=== PATIENT | male | born 1985 ===

== ENCOUNTER 2017-05-17 12:31 | Emergency (ER) | payer MEDICAID ==
[2017-05-17 12:45] VITALS: BP 113/66; PULSE 96; RESP 16; O2SAT 97
--- NOTE | 2017-05-17 12:55 | ED.REPORT ---
HPI-Overdose/Alcohol Toxicity Date of Service May 17, 2017 ED Provider: Jose Juan Jackson DO The pt is a 32 y/o male presenting to the ED complaining of rectal bleeding. He reports seeing a little blood after bowel movements. Denies vomiting. The pt also has scrapes on his forehead from a recent fall. Nursing Notes Stated Complaint: BLOOD IN STOOL Chief Complaint: Blood in stool Nursing Notes Reviewed: Yes Allergies: Coded Allergies: No Known Allergies (Unverified , 05/17/17) General Time Seen by Provider: 13:05 Chief Complaint Other (Blood in stool ) Hx Obtained From: Patient Recent Healthcare: No recent doctor visit, No recent hospitalization Similar Sx Previous: No Past Medical History Past Medical History None reported Past Surgical History Craniotomy Smoking History Unknown if Ever Smoker Social History Alcohol Use: 1-3 per day Other Social History: Homeless Review of Systems Scrapes on forehead from recent fall; GI: Reports: Bloody/tarry stool, Denies: Vomiting Complete sys rev & neg: except as marked. Physical Exam Initial Vital Signs Vital Signs (First) Date Time Temp Pulse Resp B/P Pulse Ox O2 Delivery O2 Flow Rate FiO2 05/17/17 12:45 36.2 96 16 113/66 97 Initial VS: Reviewed ENT: Mucous membranes moist, Conjunctiva normal, No scleral icterus Neck: Supple, Non-tender, Full range of motion General/Constitutional: Awake, Alert Appears intoxicated Respiratory / Chest: Atraumatic, Breath sounds NL, Breath sounds = bilat Cardiovascular: Heart rate NL, Regular rhythm, Heart sounds NL Abdomen: Atraumatic, Soft, Non-tender Neurologic: No motor deficits Psychiatric: Affect NL, Mood NL Skin: Color NL, Warm, Dry Facial abrasions Rectum / Perineum: Patient refused exam Interpretation & Diagnostics Lab Results Interpretation Result Diagram: 05/17/17 1318 05/17/17 1318 Test 05/17/17 13:18 White Blood Count 7.1th/mm3 (3.8-10.1) Red Blood Count 4.84mil/mm3 (4.40-5.80) Hemoglobin 15.0g/dL (13.8-17.2) Hematocrit 44.5% (41.0-50.0) Mean Corpuscular Volume 91.9fL (81-100) Mean Corpuscular Hemoglobin 31.0pg (27.0-35.0) Mean Corpuscular Hemoglobin Concent 33.7% (32.0-37.0) Red Cell Distribution Width 14.4% (12.3-15.4) Platelet Count 318bil/L (150-400) Neutrophils (%) (Auto) 61.6% (40-74) Lymphocytes (%) (Auto) 26.1% (14-46) Monocytes (%) (Auto) 9.8% (4-12) Eosinophils (%) (Auto) 1.8% (0-5) Basophils (%) (Auto) 0.6% (0-3) Sodium Level 143mEq/L (134-144) Potassium Level 3.9mEq/L (3.5-5.2) Chloride Level 106mEq/L (97-108) Carbon Dioxide Level 22mmol/L (18-29) Blood Urea Nitrogen 9mg/dL (6-20) Creatinine 0.67mg/dL (0.76-1.27) Estimat Glomerular Filtration Rate 144mL/min (>59) Glucose Level 106mg/dL (60-99) Calcium Level 9.2mg/dL (8.5-10.1) Total Bilirubin 0.2mg/dL (0.0-1.2) Aspartate Amino Transf (AST/SGOT) 19U/L (0-50) Alanine Aminotransferase (ALT/SGPT) 16U/L (0-44) Alkaline Phosphatase 75U/L (25-150) Total Protein 7.2g/dL (6.4-8.4) Albumin 4.4g/dL (3.4-5.0) Hold Grimes Top Tube Received (Received) CT Head Interpretation IMPRESSION: 1. No acute intracranial abnormalities. 2. Remote left pterional craniotomy, with anterior left temporal lobe encephalomalacia, presumably postoperative. 3. Disconjugate gaze directions would suggest diplopia and possible cranial nerve palsy. 4. Nonacute right nasal fracture. Dictated by: Dk Lucas M.D. on 05/17/2017 at 14:01 Approved by: Dk Lucas M.D. on 05/17/2017 at 14:04 Study: Head CT no contrast Interpretation / Wet Read by: Interpret - Radiologist Re-Eval/Medical Decision Med Decision/Clinical Course Notified that the patient was up and walking and subsequently eloped from the department. Diagnostic evaluation in the ER is unremarkable. Re-Evaluation/Progress : Time of Eval: 15:16 Re-Evaluation/Progress Note: Pt has eloped from the department prior to discharge. Counseled Regarding: Diagnosis, Lab results, Need for follow-up, When/why to return to ED Discharge & Departure Impression: Primary Impression: Alcohol intoxication Complication of substance-induced condition: uncomplicated Qualified Code: F10.120 - Alcohol abuse with intoxication, uncomplicated Additional Impression: Hematochezia Disposition: AGAINST MEDICAL ADVICE (eloped) Discharge Condition All VS Reviewed: Yes Condition: Stable Referrals: Trina Parker MD Scribe Attestation Portions of this note were transcribed by Cong Mosqueda. I, Dr. Jackson personally performed the history, physical exam and medical decision-making; I reviewed and confirmed the accuracy of the information in the transcribed note. Portions of this note were transcribed by Farhan Lubin. Dr. Manuel Bonilla personally performed the history, physical exam and medical decision-making; I reviewed and confirmed the accuracy of the information in the transcribed note. copies to: Trina Parker MDJose Juan Azeem AMOR May 17, 2017 12:55 Cong Mosqueda May 17, 2017 13:11 FARHAN LUBIN May 17, 2017 15:23
[2017-05-17 13:24] LABS: BASOPHILS % (AUTO) 0.6 % (0-3); EOSINOPHILS % (AUTO) 1.8 % (0-5); MONOCYTES % (AUTO) 9.8 % (4-12); Mean Corpuscular Volume 91.9 fL (81-100); NEUTROPHILS % (AUTO) 61.6 % (40-74); Platelet Count 318 bil/L (150-400)
--- NOTE | 2017-05-17 14:06 | DRSVH ---
PROCEDURE: CT BRAIN WITHOUT CONTRAST ([id number]) INDICATIONS: 32-year-old male with altered level of consciousness and facial contusions. TECHNIQUE: Noncontrast 4.5 mm thick angled axial sections acquired from the foramen magnum to the vertex, with c oronal reformats. COMPARISON: None available. FINDINGS: Image quality: Excellent. CSF spaces: Basal cisterns are patent. No extra-axial fluid collections. Ventricles are normal in size and shape. Brain: No midline shift. No intracranial masses or hemorrhage. There is localized encephalomalacia of the anterior left temporal lobe. Skull and face: Patient is status post left pterional craniotomy. There is nonacute right nasal fract ure. Orbital these directions are disconjugate. Sinuses: Visualized sinuses and mastoids are clear. IMPRESSION: 1. No acute intracranial abnormalities. 2. Remote left pterional craniotomy, with anterior left temporal lobe encephalomalacia, presumably po stoperative. 3. Disconjugate gaze directions would suggest diplopia and possible cranial nerve palsy. 4. Nonacute right nasal fracture. Dictated by: Dk Lucas M.D. on 05/17/2017 at 14:01 Approved by: Dk Lucas M.D. on 05/17/2017 at 14:04
== END 2017-05-17 15:20 | disposition left against medical advice (07) ==
LOC: SED 12:31
DX: F10.120 Alcohol abuse with intoxication, uncomplicated (principal); K92.1 Melena; Z53.29 Procedure and treatment not carried out because of patient's decision for other reasons; Z59.0 Homelessness